=== PATIENT | female | born 1955 | race Caucasian/White ===

== ENCOUNTER 2018-10-27 15:31 | Observation (INO) | payer BC, MEDICARE ==
[2018-10-27] MEDS ORDERED: Diltiazem 125 MG/25 ML ONE (15:53)
--- NOTE | 2018-10-27 15:57 | RAD ---
CHEST 1 VIEW: Date: 10/27/18 HISTORY: Chest pain. Palpitations. FINDINGS: No comparison. Cardiac silhouette is magnified by projection. Pulmonary vasculature is upper limits of normal. Media stinum is midline. No lobar consolidation or evidence of pneumothorax. ripshear operator leads overlie the chest. IMPRESSION: No active cardiopulmonary abnormalities are demonstrated. POS: [facility]
[2018-10-27] MEDS ORDERED: Diltiazem HCl 125 MG, Admixture Fee 1 EACH in Sodium Chloride 0.9% 100 ML IVPB SCH (16:00)
[2018-10-27 16:15] LABS: #Basophils 0.1 thou/uL (0.0-0.2); #Eosinphils 0.4 thou/uL (0.0-0.7); #Lymphocytes 1.8 thou/uL (1.20-3.40); #Monocytes 0.7 thou/uL (0.11-0.59); #Neutrophils 6.1 thou/uL (1.40-6.50); %Basophils 0.6 % (0.0-1.0); %Eosinophils 3.9 % (0.0-10.0); %Lymphocytes 20.2 % (21.0-51.0); %Monocytes 7.7 % (0.0-10.0); %Neutrophils 67.6 % (42.0-75.0); Hemoglobin 12.7 g/dL (12.0-16.0); Mean Corpuscular HGB CONC 31.9 g/dL (32.0-36.0); Mean Corpuscular Hemoglobin 19.7 pg (27.0-31.0); Mean Corpuscular Volume 61.9 fL (78.0-98.0); Mean Platelet Volume 11.7 fL (7.4-10.4); Platelet Count 271 thou/uL (130-400); RBC Distribution Width 15.9 % (11.5-14.5); Red Blood Cell (RBC) Count 6.45 mill/uL (4.20-5.40)
[2018-10-27 16:27] LABS: ALT (SGPT) 29 U/L (8-55); AST (SGOT) 26 U/L (5-34); Albumin 4.1 g/dL (3.4-4.8); Alkaline Phosphatase 102 U/L (40-150); Anion Gap 12 mmol/L (10-20); BUN (Urea Nitrogen) 18 mg/dL (9.8-20.1); Bilirubin, Total 1.1 mg/dL (0.2-1.2); CK (CPK) 36 U/L (29-168); Calc. Creatinine Clearance 0 mL/min (70-130); Calcium 9.6 mg/dL (7.8-10.44); Carbon Dioxide 25 mmol/L (23-31); Chloride 107 mmol/L (98-107); Estimated GFR-MDRD 70; Globulin 2.9 g/dL (2.4-3.5); Glucose 126 mg/dL (80-115); Potassium 3.3 mmol/L (3.5-5.1); Sodium 141 mmol/L (136-145)
[2018-10-27 16:32] LABS: Anisocytosis SLIGHT = 6-15 cells (100X) (0-5/hpf); Elliptocytes SLIGHT = 2-5 cells (100X) (0-1/hpf); Hypochromia SLIGHT = 6-15 cells (100X) (0-5/hpf); MDiff Complete? YES; Microcytosis MODERATE=15-30 cells (100X) (0-5/hpf); Ovalocytes SLIGHT = 2-5 cells (100X) (0-1/hpf); PLT Morphology Comment Appears Adequate; Polychromasia SLIGHT = 2-3 cells (100X) (0-2/hpf); Reflex for Review?? YES; Target Cells SLIGHT = 2-5 cells (100X) (0-1/hpf)
[2018-10-27] MEDS ORDERED: Potassium Chloride 20 MEQ TAB ONE (17:43)
--- NOTE | 2018-10-27 18:18 | PDOC.FPRHP ---
- History of Present Illness Chief Complaint: palpitations History of Present Illness: Ms. Curtis presents to the ED with palpitations She reports that she has had similar episodes of feeling her heart pounding in her chest in the past but for the past two weeks it has been more frequent and pronounced, and today brought her here. She has never had any chest pain, syncope, or shortness of breath during these episodes. She does endorse headache but denies any other symptoms. for the past week she reports she has been more stressed out. She is followed by cardiology in [place] and reports that 3 weeks ago she had a normal EKG, stress test, and echocardiogram. ED Course: CBC, CMP, MG, CK, trop, CXR, EKG Kdur, diltiazem drip - Allergies/Adverse Reactions Allergies Allergy/AdvReac Type Severity Reaction Status Date / Time Penicillins Allergy Severe Rash Verified 10/27/18 20:50 - Home Medications Medication Instructions Recorded Confirmed Type Apixaban [Eliquis] 5 mg PO BID 10/27/18 10/27/18 History Atenolol [Tenormin] 25 mg PO HS 10/27/18 10/27/18 History Levocetirizine Dihydrochloride 5 mg PO HS 10/27/18 10/27/18 History Montelukast Sodium [Singulair] 10 mg PO HS 10/27/18 10/27/18 History Ursodiol 600 mg PO BID 10/27/18 10/27/18 History - History PMHx:afib, "liver problem" PSHx: hysterectomy, tonsillectomy, acl repair FHx: mother had a "heart flutter" Social: no TAD - Review of Systems General: denies: fever/chills, weight/appetite/sleep changes Eyes: denies: eye pain, vision changes ENT: denies: nasal congestion Respiratory: denies: cough, congestion, shortness of breath Cardiovascular: reports: palpitation. denies: chest pain, edema Gastrointestinal: denies: nausea, vomiting, diarrhea, constipation Genitourinary: reports: incontinence. denies: dysuria Skin: denies: rashes, lesions Musculoskeletal: denies: pain, tenderness Neurological: denies: numbness, syncope - Vital signs BP: 131/93 HR: 62 RR: 16 Tmax: 97.6 Pox: 96% on RA Wt: 108.86kg - Physical Exam Constitutional: NAD, awake, alert and oriented HEENT: normocephalic and atraumatic, EOMI, grossly normal vision, grossly normal hearing Neck: supple, trachea midline Chest: no-tender to palpation, no lesions Heart: RRR, normal S1/S2, no murmurs/rubs/gallops, pulses present, no edema Lungs: CTAB, no respiratory distress, good air movement Abdomen: soft, non-tender, bowel sounds present Musculoskeletal: normal structure, normal tone Neurological: no focal deficit, CN II-XII intact Skin: no rash/lesions Heme/Lymphatic: no unusual bruising or bleeding Psychiatric: normal mood and affect FMR H&P: Results - Labs Result Diagrams: 10/27/18 15:50 10/27/18 15:50 Lab results: WBC 9.0 thou/uL (4.8-10.8) 10/27/18 15:50 Hgb 12.7 g/dL (12.0-16.0) 10/27/18 15:50 Hct 39.9 % (36.0-47.0) 10/27/18 15:50 MCV 61.9 fL (78.0-98.0) L 10/27/18 15:50 Plt Count 271 thou/uL (130-400) 10/27/18 15:50 Neutrophils % 67.6 % (42.0-75.0) 10/27/18 15:50 Sodium 141 mmol/L (136-145) 10/27/18 15:50 Potassium 3.3 mmol/L (3.5-5.1) L 10/27/18 15:50 Chloride 107 mmol/L (98-107) 10/27/18 15:50 Carbon Dioxide 25 mmol/L (23-31) 10/27/18 15:50 BUN 18 mg/dL (9.8-20.1) 10/27/18 15:50 Creatinine 0.82 mg/dL (0.6-1.1) 10/27/18 15:50 Glucose 126 mg/dL (80-115) H 10/27/18 15:50 Calcium 9.6 mg/dL (7.8-10.44) 10/27/18 15:50 Total Bilirubin 1.1 mg/dL (0.2-1.2) 10/27/18 15:50 AST 26 U/L (5-34) 10/27/18 15:50 ALT 29 U/L (8-55) 10/27/18 15:50 Alkaline Phosphatase 102 U/L (40-150) 10/27/18 15:50 Creatine Kinase 36 U/L (29-168) 10/27/18 15:50 Serum Total Protein 7.0 g/dL (6.0-8.3) 10/27/18 15:50 Albumin 4.1 g/dL (3.4-4.8) 10/27/18 15:50 FMR H&P: A/P - Problem List (1) Atrial fibrillation with RVR Current Visit: Yes Status: Acute Code(s): I48.91 - UNSPECIFIED ATRIAL FIBRILLATION (2) Hypokalemia Current Visit: Yes Status: Acute Code(s): E87.6 - HYPOKALEMIA - Plan Afib with RVR - converted back to NSR upon evaluation in ED, on diltiazem drip. asymptomatic - continue diltiazem drip overnight, consider switching back to oral medication in AM, increased atenolol dose - troponin neg, denies SOB, not concerning for new cardiac insult - recent cardiac workup, request records - consider cardiology consult - mag, phos, tsh pending Hypokalemia - replenished in ED - repeat in AM, monitor code: full ppx: eliquis Disposition/LOS: observation on telelmetry, continue on dilt drip overnight FMR H&P: Upper Level - Pertinent history 63 yr old female with history of paroxysmal Afib who presents to ER for palpitations and found to be in Afib with RVR. Patient states symptoms started about an hour prior to arrival however she did have symptoms 6 days ago as well but then seemed to pass over. 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 She denies recent illness, fever, abdominal pain. No chest pain. Minimal SOB associated with the palpitations. In the ER, her rate was initially in 150-160's. She was given 20 mg of diltiazem and placed on dilt drip of 5 now titrated down to 2.5mg/hr. She has since converted to normal sinus rhythm. PCP: [facility] Reporting Lead: In [place]. - Pertinent findings EKG: Afib with RVR upon arrival followed by Afib rate controlled without ST changes. CXR: No cardiopulmonary disease Gen: no acute distress, resting comfortably Heart: RRR, no murmurs, rubs, gallops Lungs: CTAB, no wheezes, rhales, rhonchi, no respiratory distress Abdomen: +BS, non tender to palpation, no distention. Ext: no edema bilaterally Neuro: intact without focal deficits. - Plan Date/Time: 10/27/181815 I, [Manuela Barger], have evaluated this patient and agree with findings/plan as outlined by international trade compliance manager resident. Pertinent changes/additions are listed here. 63 yr old female with paroxysmal afib in RVR A-fib with RVR -spontaneously converted to normal sinus rhythm and rate controlled to 60's on dilt drip -cont dilt drip for now -check mag, phos, TSH -obtain records from [place] cardiology -hold atenolol for now -cont eliquis hypokalemia -repleted in ER -recheck in AM Allergies -cont home med Code Status: Full Diet: HH
[2018-10-27] MEDS ORDERED: Diltiazem 125 MG in Sodium Chloride 0.9% 100 ML IVPB SCH (20:34)
[2018-10-27] MEDS ORDERED: Acetaminophen 325 MG TAB PO PRN (20:34)
[2018-10-27 20:39] VITALS: BMI 41.8
[2018-10-27 22:24] LABS: Troponin I 0.018 ng/mL (< 0.028)
[2018-10-27] MEDS ORDERED: Apixaban 5 MG TAB PO SCH (23:00)
[2018-10-27] MEDS ORDERED: Montelukast Sodium 10 mg Tablet PO SCH (23:00)
[2018-10-27] MEDS ORDERED: Ursodiol 300 MG CAP PO SCH (23:00)
[2018-10-27] MEDS ORDERED: Loratadine 10 MG TAB PO SCH (23:00)
[2018-10-28 05:15] LABS: Anion Gap 11 mmol/L (10-20); BUN (Urea Nitrogen) 17 mg/dL (9.8-20.1); Calc. Creatinine Clearance 131 mL/min (70-130); Calcium 8.9 mg/dL (7.8-10.44); Carbon Dioxide 26 mmol/L (23-31); Chloride 109 mmol/L (98-107); Estimated GFR-MDRD 78; Glucose 93 mg/dL (80-115); Magnesium 1.9 mg/dL (1.6-2.6); Phosphorus 3.3 mg/dL (2.3-4.7); Potassium 3.7 mmol/L (3.5-5.1); Sodium 142 mmol/L (136-145)
--- NOTE | 2018-10-28 06:32 | PDOC.FM ---
- Subjective Subjective: No events overnight. Patient reports felling well w/ no complaints or concerns. Denies palpitations since yesterday. Tolerating PO well. Patient states that she wishes to establish with a finance insurance manager in this area as she will be moving/ spending more time here in a few months. Patient denies diaphoresis, chest pain , headache, dizziness, abdominal pain, LE swelling. - Objective Vital Signs & Weight: Vital Signs (12 hours) Temp Pulse Resp BP BP Pulse Ox 10/28/18 04:21 98.4 F 69 16 106/60 96 10/28/18 00:00 68 16 112/66 10/27/18 20:01 97.6 F 69 16 159/91 H 97 Weight Weight 110.631 kg Result Diagrams: 10/27/18 15:50 10/28/18 04:21 Phys Exam - Physical Examination Constitutional: NAD HEENT: PERRLA, moist MMs, sclera anicteric Neck: no JVD, supple, full ROM Respiratory: clear to auscultation bilateral Cardiovascular: RRR, no significant murmur, no rub Gastrointestinal: soft, non-tender, no distention, positive bowel sounds Musculoskeletal: no edema Neurological: non-focal Psychiatric: normal affect, A&O x 3 Skin: no rash Dx/Plan (1) Atrial fibrillation with RVR Code(s): I48.91 - UNSPECIFIED ATRIAL FIBRILLATION Status: Acute (2) Hypokalemia Code(s): E87.6 - HYPOKALEMIA Status: Acute - Plan Plan: 63yo F with paroxysmal Afib w/ RVR Afib with RVR - converted back to NSR upon evaluation in ED, on diltiazem drip. - Patient continued on diltiazem drip overnight. Will switch to oral medication this AM - will increase atenolol dose. - troponin neg, denies SOB, not concerning for new cardiac insult - recent cardiac workup in [place], records have been requested. Will consult cardiology as patient wishes to establish w/ provider here. Appreciate recommendations. - TSH, Mg, Phos, calcium wnl - continue eliquis Hypokalemia - K 3.7, will continue to monitor Allergies -cont home med Code Status: Full Diet: DISPO: continue observation on tele, switching to oral medications today; possible discharge later today Addendum - Attending - Attending Attestation Date/Time: 10/28/18 2227 I personally evaluated the patient and discussed the management with Dr. Olivier I agree with the History, Examination, Assessment and Plan documented above with any addition or exceptions noted below- Patient without complaints. No further palpitations. Afebrile VSS. A/P: 1) Afib with RVR- resolved; will consult cardiology for further recommendations. resumed home dose of beta mai
[2018-10-28] MEDS: Apixaban 5 MG TAB PO SCH ×2 (08:37→21:01)
[2018-10-28] MEDS: Ursodiol 300 MG CAP PO SCH ×2 (08:37→21:01)
[2018-10-28] MEDS: Loratadine 10 MG TAB PO SCH (08:38)
[2018-10-28] MEDS ORDERED: Atenolol 50 MG TAB PO SCH (09:00)
--- NOTE | 2018-10-28 19:18 | CON ---
DATE OF CONSULTATION: REASON FOR CONSULTATION: Atrial fibrillation. HISTORY OF PRESENT ILLNESS: Ms. Curtis is a 63-year-old woman, who has a renal nurse in [place], [place]. She underwent a noninvasive stress study with a stress echo earlier in the month. Her LVEF was normal. She had no significant ischemia present. She recently presented with palpitations. It occurred acutely. She did have associated shortness of breath. No other present. She presented to the emergency room, where she was found to be in atrial fibrillation with rapid ventricular response. She was placed on IV Cardizem. She has since converted to sinus rhythm. From a CV standpoint, she does give a history of having atrial fibrillation 6 months ago. She was placed on anticoagulation therapy at that time by her primary renal nurse. PAST MEDICAL HISTORY: Atrial fibrillation, hysterectomy, tonsillectomy, previous ACL repair. FAMILY HISTORY: Negative for CAD. SOCIAL HISTORY: No current tobacco or alcohol use. REVIEW OF SYSTEMS: A 10-point review of systems is reviewed and as above, otherwise negative. HOME MEDICATIONS: Include Eliquis, Singulair, Tenormin. PHYSICAL EXAMINATION: GENERAL: Patient is a pleasant 63-year-old, who is in no acute distress. The patient appears their stated age. VITAL SIGNS: Blood pressure 130/78, pulse 63, temperature 97.9. NEUROLOGIC: The patient is alert and oriented x3 with no focal neurologic deficits. HEENT: Sclerae without icterus. Mouth has moist mucous membranes with normal pallor. NECK: No JVD. Carotid upstroke brisk. No bruits bilaterally. LUNGS: Clear to auscultation with unlabored respirations. BACK: No scoliosis or kyphosis. CARDIAC: Regular rate and rhythm with normal S1 and S2. No S3 or S4 noted. No significant rubs, murmurs, thrills, or gallops noted throughout the precordium. PMI is not displaced. There is no parasternal heave. ABDOMEN: Soft, nontender, nondistended. No peritoneal signs present. No hepatosplenomegaly. No abnormal striae. EXTREMITIES: 2+ femoral and 2+ dorsalis pedis pulses. No cyanosis, clubbing, or edema. SKIN: No gross abnormalities. PERTINENT LABORATORY DATA: Hemoglobin 12.7. Creatinine 0.75. IMPRESSION: Paroxysmal atrial fibrillation. Ms. Curtis is currently in a normal sinus rhythm. At this point, we would add Multaq to prevent further episodes. I did discuss ablation. She can discuss with primary renal nurse in [place]. We would also consider increasing her atenolol, although her heart rate has been in the upper 50s to low 60s. At this point, we will keep at 25 mg. If she is stable in the morning, will be okay from my standpoint to discharge home with close outpatient followup. Job ID: [id number]
[2018-10-28] MEDS ORDERED: Non-Formulary Item 1 EACH (Levocetirizine Dihydrochloride [Levocetirizine Dihydrochloride PO SCH (21:00)
[2018-10-28] MEDS ORDERED: Montelukast Sodium 10 mg Tablet PO SCH (21:00)
[2018-10-28] MEDS ORDERED: Atenolol 25 MG TAB PO SCH ×3 (21:00)
[2018-10-28] MEDS ORDERED: Loratadine 10 MG TAB PO SCH (21:00)
[2018-10-29 05:25] LABS: Anion Gap 12 mmol/L (10-20); BUN (Urea Nitrogen) 16 mg/dL (9.8-20.1); Calc. Creatinine Clearance 124 mL/min (70-130); Calcium 9.1 mg/dL (7.8-10.44); Carbon Dioxide 26 mmol/L (23-31); Chloride 108 mmol/L (98-107); Estimated GFR-MDRD 73; Glucose 99 mg/dL (80-115); Potassium 3.8 mmol/L (3.5-5.1); Sodium 142 mmol/L (136-145)
--- NOTE | 2018-10-29 06:08 | PDOC.FM ---
- Subjective Subjective: No events overnight. Patient denies chest pain, SOB, palpitations or diaphoresis. Patient states she did not sleep well last night due to setting of being in hospital and not being comfortable in bed. She states she discussed her condition with the corporate strategy analyst including adding multaq and the possibility of an ablation in the future. All her questions were asked and answered. Patient states she will follow up with corporate strategy analyst in [place]. - Objective Vital Signs & Weight: Vital Signs (12 hours) Temp Pulse Resp BP BP Pulse Ox 10/29/18 05:14 98 F 58 L 16 127/74 98 10/28/18 23:23 98.3 F 108 H 16 161/95 H 94 L 10/28/18 21:01 65 Weight Weight 110.54 kg I&O: 10/27/18 10/28/18 10/29/18 06:59 06:59 06:59 Intake Total 471.6 2060.2 Output Total 400 200 Balance 71.6 1860.2 Result Diagrams: 10/27/18 15:50 10/29/18 04:57 Phys Exam - Physical Examination Constitutional: NAD HEENT: PERRLA, moist MMs, sclera anicteric Neck: no JVD, supple, full ROM Respiratory: clear to auscultation bilateral Cardiovascular: RRR, no significant murmur, no rub Gastrointestinal: soft, non-tender, no distention, positive bowel sounds Musculoskeletal: no edema Neurological: non-focal, moves all 4 limbs Psychiatric: normal affect, A&O x 3 Skin: no rash Dx/Plan (1) Atrial fibrillation with RVR Code(s): I48.91 - UNSPECIFIED ATRIAL FIBRILLATION Status: Acute (2) Hypokalemia Code(s): E87.6 - HYPOKALEMIA Status: Acute - Plan Plan: 63yo F with paroxysmal Afib w/ RVR Paroxysmal Atrial Fibrillation - converted back to NSR upon evaluation in ED, on diltiazem drip. - TSH, Mg, Phos, calcium wnl - continue eliquis - Cardiology consulted. Recommend adding multaq to prevent future episodes. Will keep atenolol dose 25mg as patient's HR has been in 50-60s. Discussed ablation procedure with patient. Close outpatient follow up. Hypokalemia, resolved - K 3.7 -> 3.8 on 10/29 Allergies - Cont home med Code Status: Full Diet: HH DISPO: discharge today w/ close outpatient follow up with corporate strategy analyst Addendum - Attending - Attending Attestation Date/Time: 10/29/18 0208 I personally evaluated the patient and discussed the management with I agree with the History, Examination, Assessment and Plan documented above with any addition or exceptions noted below. 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 REc Mammogram and evaluation per PCP will discuss with patient.
[2018-10-29] MEDS ORDERED: Dronedarone HCl 400 MG TAB PO SCH (08:00)
[2018-10-29] MEDS: Ursodiol 300 MG CAP PO SCH (08:14)
[2018-10-29] MEDS: Apixaban 5 MG TAB PO SCH (08:14)
[2018-10-29] MEDS: Loratadine 10 MG TAB PO SCH (08:14)
[2018-10-29 12:08] VITALS: BP 115/83; TEMP 97.9
--- NOTE | 2018-10-29 17:58 | EKG ---
Test Reason : PALPITAIONS Blood Pressure : / mmHG Vent. Rate : 097 BPM Atrial Rate : 115 BPM P-R Int : 000 ms QRS Dur : 082 ms QT Int : 366 ms P-R-T Axes : 000 001 -26 degrees QTc Int : 464 ms Atrial fibrillation Minimal voltage criteria for LVH, may be normal variant Nonspecific ST and T wave abnormality Abnormal ECG Confirmed by YURIY AVILEZ DO ([id number]), purchasing expeditor CARLIE DOVE ([id number]) on 10/29/2018 5:58:08 PM Referred By: Confirmed By:YURIY AVILEZ DO
--- NOTE | 2018-10-29 17:58 | EKG ---
Test Reason : PALPITATIONS Blood Pressure : / mmHG Vent. Rate : 157 BPM Atrial Rate : 234 BPM P-R Int : 000 ms QRS Dur : 074 ms QT Int : 248 ms P-R-T Axes : 000 007 232 degrees QTc Int : 400 ms Atrial fibrillation with rapid ventricular response Minimal voltage criteria for LVH, may be normal variant Cannot rule out Anterior infarct , age undetermined Marked ST abnormality, possible inferior subendocardial injury Abnormal ECG Confirmed by YURIY AVILEZ DO ([id number]), restaurant expeditor CARLIE DOVE ([id number]) on 10/29/2018 5:58:07 PM Referred By: Confirmed By:YURIY AVILEZ DO
--- NOTE | 2018-10-31 08:27 | DIS ---
DATE OF ADMISSION: 10/27/2018 DATE OF DISCHARGE: 10/29/2018 RESIDENT: Kiki Olivier MD ADMITTING ATTENDING: William Nichols MD DISCHARGE ATTENDING: Shay Nobles MD CONSULTS: Cardiology. PROCEDURES: None. PRIMARY DIAGNOSIS: Paroxysmal atrial fibrillation. SECONDARY DIAGNOSES: 1. Hypokalemia, resolved. 2. Allergies, chronic. DISCHARGE MEDICATIONS: 1. Multaq 400 mg oral twice daily with meals. 2. Singulair 10 mg oral at bedtime. 3. Ursodiol 600 mg oral twice daily. 4. Levocetirizine dihydrochloride 5 mg oral every morning. 5. Atenolol 25 mg oral at bedtime. 6. Eliquis 5 mg oral twice daily. Discontinued medications: None. HISTORY OF PRESENT ILLNESS/HOSPITAL COURSE: This is a 63-year-old female, who presented to the emergency department with a chief complaint of palpitations. The patient reports that she had similar episodes of feeling like her heart was pounding in her chest in the past, but for the past 2 weeks, it has become more frequent and pronounced. The patient states that she never had chest pain, syncope, or shortness of breath associated with these episodes. The patient does endorse a headache, but denies any other symptoms at that time. The patient reports that she sees a sed special education teacher in [place] and that she had a normal EKG stress test and echocardiogram 3 weeks ago. In the ED, the patient was found to be in atrial fibrillation with RVR and started on a diltiazem drip. The patient was also found to have a low potassium of 3.3, which was replaced and checked throughout her hospital stay. The patient converted to normal sinus rhythm, and the diltiazem drip was stopped on 10/28/2018. The patient did have a small run of atrial fibrillation on the night of 10/28, but converted back to normal sinus rhythm. The patient was asymptomatic at that time. Otherwise, vital signs have remained stable throughout her stay. Cardiology was consulted as the patient wishes to eventually establish care with a sed special education teacher here in town. She will be working in [place] the next few months, but will then be in the [facility] after that. Cardiology started the patient on Multaq and kept her beta-mai at the same dosage. DISPOSITION: Stable. DISCHARGE INSTRUCTIONS: 1. Location: Home. 2. Activity: Ad aisha. 3. Diet: Heart healthy. 4. Followup: Follow up with PCP within 1 week and follow up with Cardiology within 1 to 2 weeks. Job ID: [id number]
== END 2018-10-29 12:10 | disposition home or self-care (01) ==
LOC: ERS 15:31 → 2SW 17:36
PROVIDERS: ADMIT Family Medicine; ATTEND Family Medicine
DX: I48.0 Paroxysmal atrial fibrillation (principal); E87.6 Hypokalemia; Z90.710 Acquired absence of both cervix and uterus; Z90.89 Acquired absence of other organs; Z88.0 Allergy status to penicillin; Z79.01 Long term (current) use of anticoagulants; Z79.899 Other long term (current) drug therapy; Z98.890 Other specified postprocedural states
CPT/HCPCS: 36415; 71045; 80048; 80053; 82550; 83735; 84100; 84443; 84484; 85025; 85060; 93005; 96365; 96366; 96376; G0378; J7050

== ENCOUNTER 2020-08-30 10:03 | Outpatient (CLI) | payer MEDICARE, BC ==
--- NOTE | 2020-08-30 16:42 | BD ---
Exam: DEXA Bone Density 08/30/20 HISTORY: Postmenopausal screening for osteoporosis. FINDINGS: Lumbar Spine: BMD (g/cm2) T-SCORE Z-SCORE L1 1.295 2.8 4.5 L2 1.457 3.9 5.8 L3 1.326 2.2 4.2 L4 1.321 2.4 4.4 L1-L4 1.348 2.7 4.6 Femoral Neck: 0.616 -2.1 -0.5 Total Femur: 0.995 0.4 1.8 The ten year fracture risk for a major osteoporotic fracture is 10% and for a hip fracture is 1.5%. Impression: Osteopenia. POS: [facility]
--- NOTE | 2020-09-16 10:30 | MMO ---
Bilateral MAMMO Bilat Screen [facility]. CLINICAL HISTORY: Patient is 65 years old and is seen for screening. The patient has the following family history of breast cancer: maternal aunt, at age 70. The patient has no personal history of cancer. VIEWS: The views performed were: bilateral craniocaudal with tomosynthesis and bilateral mediolateral oblique with tomosynthesis. FILMS COMPARED: The present examination has been compared to prior imaging studies performed at [facility] on 11/25/2015, 11/26/2016, 12/21/2017 and 12/22/2018. This study has been interpreted with the assistance of computer-aided detection. MAMMOGRAM FINDINGS: The breasts are almost entirely fat. There are no suspicious masses, suspicious calcifications, or new areas of architectural distortion. IMPRESSION: THERE IS NO MAMMOGRAPHIC EVIDENCE OF MALIGNANCY. A ROUTINE FOLLOW-UP MAMMOGRAM IN 1 YEAR IS RECOMMENDED. THE RESULTS OF THIS EXAM WERE SENT TO THE PATIENT. ACR BI-RADS Category 1 - Negative MAMMOGRAPHY NOTE: 1. A negative mammogram report should not delay a biopsy if a dominant of clinically suspicious mass is present. 2. Approximately 10% to 15% of breast cancers are not detected by mammography. 3. Adenosis and dense breasts may obscure an underlying neoplasm. Reported by: CHRYSTAL LINDSEY MD Electonically Signed: [id number]
== END 2020-08-30 10:04 | disposition home or self-care (01) ==
LOC: BICMAMMO 10:03
PROVIDERS: ATTEND Internal Medicine
DX: M81.0 Age-related osteoporosis without current pathological fracture (principal); M85.859 Other specified disorders of bone density and structure, unspecified thigh
CPT/HCPCS: 77063; 77067; 77080

== ENCOUNTER 2021-08-29 08:45 | Outpatient (CLI) | payer MEDICARE, BC | END 2021-08-29 08:46 | disposition home or self-care (01) | LOC: ULT 08:45 | PROVIDERS: ATTEND Internal Medicine Gastroenterology | DX: K74.3 Primary biliary cirrhosis (principal); R93.2 Abnormal findings on diagnostic imaging of liver and biliary tract | CPT/HCPCS: 76705 ==

== ENCOUNTER 2021-09-23 09:00 | Outpatient (CLI) | payer MEDICARE, BC | END 2021-09-23 09:01 | disposition home or self-care (01) | LOC: BICMAMMO 09:00 | PROVIDERS: ATTEND Internal Medicine | DX: Z12.31 Encounter for screening mammogram for malignant neoplasm of breast (principal); Z80.3 Family history of malignant neoplasm of breast | CPT/HCPCS: 77063; 77067 ==

== ENCOUNTER 2022-09-07 10:01 | Outpatient (CLI) | payer MEDICARE, BC ==
[2022-09-07] MEDS ORDERED: Iopamidol-370 76% 500 ML 1 ML ONE (10:43)
== END 2022-09-07 10:02 | disposition home or self-care (01) ==
LOC: BICCT 10:01
PROVIDERS: ATTEND Internal Medicine Gastroenterology
DX: R91.1 Solitary pulmonary nodule (principal); K80.20 Calculus of gallbladder without cholecystitis without obstruction; K74.3 Primary biliary cirrhosis; J84.10 Pulmonary fibrosis, unspecified
CPT/HCPCS: 71260; 82565; Q9967

== ENCOUNTER 2022-09-23 10:27 | Outpatient (CLI) | payer MEDICARE, BC | END 2022-09-23 10:28 | disposition home or self-care (01) | LOC: BICULT 10:27 | PROVIDERS: ATTEND Internal Medicine Gastroenterology | DX: K80.20 Calculus of gallbladder without cholecystitis without obstruction (principal); K74.3 Primary biliary cirrhosis; R91.1 Solitary pulmonary nodule; K76.0 Fatty (change of) liver, not elsewhere classified; N28.1 Cyst of kidney, acquired | CPT/HCPCS: 76705 ==

== ENCOUNTER 2022-10-08 10:49 | Outpatient (CLI) | payer MEDICARE, BC | END 2022-10-08 10:50 | disposition home or self-care (01) | LOC: BICMAMMO 10:49 | PROVIDERS: ATTEND Internal Medicine | DX: Z12.31 Encounter for screening mammogram for malignant neoplasm of breast (principal); Z80.3 Family history of malignant neoplasm of breast | CPT/HCPCS: 77063; 77067 ==

== ENCOUNTER 2023-02-09 08:38 | Day surgery (SDC) | payer MEDICARE, BC ==
[2023-02-08 10:59] VITALS: BMI 42.5
[2023-02-09] MEDS ORDERED: Protamine Sulfate 50 MG/5 ML VIAL ONE (12:03)
[2023-02-09] MEDS ORDERED: Heparin 25,000 units/D5W 500 ML ONE (12:03)
[2023-02-09] MEDS ORDERED: Heparin 10,000 UNITS/ 10 ML VIAL ONE (12:03)
[2023-02-09] MEDS ORDERED: fentaNYL 50 mcg/mL 1 mL Vial ONE ×3 (12:13→14:10)
[2023-02-09] MEDS ORDERED: Famotidine/PF 20 mg/2ml Vial ONE (12:34)
[2023-02-09] MEDS ORDERED: Ketorolac Tromethamine 30 MG/ML VIAL ONE (12:34)
[2023-02-09] MEDS ORDERED: Lidocaine 1% PF 5 ML VIAL ONE (12:34)
[2023-02-09] MEDS ORDERED: Rocuronium Bromide 10 MG/ML (10ML VIAL) ONE (12:34)
[2023-02-09] MEDS ORDERED: Phenylephrine 10 MG/ML VIAL ONE (12:34)
[2023-02-09] MEDS ORDERED: ePHEDrine Sulfate 50 MG/10 ML VIAL ONE (12:34)
[2023-02-09] MEDS ORDERED: NEOSTIGMINE 3 MG/3 ML SYR 3 MG/3 ML SYRINGE ONE (12:34)
[2023-02-09] MEDS ORDERED: Metoclopramide HCl 10 MG/2 ML VIAL ONE (12:34)
[2023-02-09] MEDS ORDERED: Ondansetron PF 4 MG/2 ML Vial ONE (12:34)
[2023-02-09] MEDS ORDERED: PROPOFOL 200 MG/20 ML VIAL ONE (12:34)
[2023-02-09] MEDS ORDERED: SUGAMMADEX SODIUM 200 MG/2 ML VIAL ONE ×2 (13:06→15:26)
== END 2023-02-09 18:00 | disposition home or self-care (01) ==
LOC: SDC 08:38
PROVIDERS: ATTEND Internal Medicine Cardiovascular Disease
PROC: B246ZZ4 Ultrasonography of Right and Left Heart, Transesophageal (ICD-10-PCS; principal; 2023-02-09)
PROC: 02583ZZ Destruction of Conduction Mechanism, Percutaneous Approach (ICD-10-PCS; 2023-02-09)
PROC: 02K83ZZ Map Conduction Mechanism, Percutaneous Approach (ICD-10-PCS; 2023-02-09)
PROC: 4A023FZ Measurement of Cardiac Rhythm, Percutaneous Approach (ICD-10-PCS; 2023-02-09)
PROC: 4A0234Z Measurement of Cardiac Electrical Activity, Percutaneous Approach (ICD-10-PCS; 2023-02-09)
DX: I48.0 Paroxysmal atrial fibrillation (principal); I48.3 Typical atrial flutter; I51.7 Cardiomegaly; I49.5 Sick sinus syndrome; G47.33 Obstructive sleep apnea (adult) (pediatric); K21.9 Gastro-esophageal reflux disease without esophagitis; Z87.891 Personal history of nicotine dependence; Z79.01 Long term (current) use of anticoagulants; Z79.899 Other long term (current) drug therapy; Z88.0 Allergy status to penicillin
CPT/HCPCS: 85347 ×2; 93005; 93312; 93655; 93656; J3010; 93010; J1644; J1885; J2370; J2405; J2704; J2720; J2765; S0028

== ENCOUNTER 2023-10-13 08:33 | Outpatient (CLI) | payer MEDICARE, BC | END 2023-10-13 08:34 | disposition home or self-care (01) | LOC: ULT 08:33 | PROVIDERS: ATTEND Internal Medicine Gastroenterology | DX: K74.3 Primary biliary cirrhosis (principal); K80.20 Calculus of gallbladder without cholecystitis without obstruction | CPT/HCPCS: 76705 ==

== ENCOUNTER 2023-10-29 10:01 | Outpatient (CLI) | payer MEDICARE, BC | END 2023-10-29 10:02 | disposition home or self-care (01) | LOC: BICMAMMO 10:01 | PROVIDERS: ATTEND Internal Medicine | DX: Z12.31 Encounter for screening mammogram for malignant neoplasm of breast (principal) | CPT/HCPCS: 77063; 77067 ==

== ENCOUNTER 2024-07-21 14:56 | Outpatient (CLI) | payer MEDICARE, BC | END 2024-07-21 14:57 | disposition home or self-care (01) | LOC: ULT 14:56 | PROVIDERS: ATTEND Nurse Practitioner Family | DX: I10 Essential (primary) hypertension (principal); R42 Dizziness and giddiness | CPT/HCPCS: 93880 ==

== ENCOUNTER 2024-07-27 12:42 | Outpatient (CLI) | payer MEDICARE, BC | END 2024-07-27 12:43 | disposition home or self-care (01) | LOC: ULT 12:42 | PROVIDERS: ATTEND Nurse Practitioner Family | DX: D64.9 Anemia, unspecified (principal) | CPT/HCPCS: 76856 ==

== ENCOUNTER 2024-08-09 13:34 | Outpatient (CLI) | payer MEDICARE, BC | END 2024-08-09 13:35 | disposition home or self-care (01) | LOC: BICCT 13:34 | PROVIDERS: ATTEND Internal Medicine | DX: Z12.2 Encounter for screening for malignant neoplasm of respiratory organs (principal); Z87.891 Personal history of nicotine dependence; K80.20 Calculus of gallbladder without cholecystitis without obstruction | CPT/HCPCS: 71271 ==

== ENCOUNTER 2024-11-15 13:11 | Outpatient (CLI) | payer MEDICARE, BC | END 2024-11-15 13:12 | disposition home or self-care (01) | LOC: BICMAMMO 13:11 | PROVIDERS: ATTEND Family Medicine | DX: Z12.31 Encounter for screening mammogram for malignant neoplasm of breast (principal); Z78.0 Asymptomatic menopausal state; M85.851 Other specified disorders of bone density and structure, right thigh; M85.852 Other specified disorders of bone density and structure, left thigh; Z80.3 Family history of malignant neoplasm of breast | CPT/HCPCS: 77063; 77067; 77080 ==

== ENCOUNTER 2025-08-13 09:56 | Outpatient (CLI) | payer MEDICARE, BC | END 2025-08-13 09:57 | disposition home or self-care (01) | LOC: BICCT 09:56 | PROVIDERS: ATTEND Internal Medicine | DX: Z12.2 Encounter for screening for malignant neoplasm of respiratory organs (principal); Z87.891 Personal history of nicotine dependence | CPT/HCPCS: 71271 ==